=== PATIENT | male | born 1955 | race Caucasian/White ===

== ENCOUNTER 2018-07-21 16:34 | Emergency (ER) | payer BC ==
[~2018-07-21] VITALS: Ht 175.3 cm; Wt 102.1 kg
[2018-07-21] MEDS ORDERED: METO50ER PO (16:48)
[2018-07-21] MEDS ORDERED: HYDCHL25 PO (16:49)
[2018-07-21 17:22] LABS: BASOPHILS ABSOLUTE AUTO 0.05 K/mm3 (0.00-0.23); BASOPHILS PERCENT AUTO 1 % (0-2); EOSINOPHILS ABSOLUTE AUTO 0.17 K/mm3 (0.00-0.68); EOSINOPHILS PERCENT AUTO 2 % (0-6); Hematocrit 44.7 % (37.0-53.0); Hemoglobin 14.5 g/dL (13.5-17.5); IMMATURE GRAN ABSOLUTE AUTO 0.02 K/mm3 (0.00-0.10); IMMATURE GRAN PERCENT AUTO 0 % (0-1); LYMPHOCYTES ABSOLUTE AUTO 2.19 K/mm3 (0.84-5.20); LYMPHOCYTES PERCENT AUTO 27 % (21-46); MONOCYTES ABSOLUTE AUTO 0.39 K/mm3 (0.16-1.47); MONOCYTES PERCENT AUTO 5 % (4-13); Mean Corpuscular HGB 29.1 pg (26.0-34.0); Mean Corpuscular HGB Conc 32.4 g/dL (31.5-36.5); Mean Corpuscular Volume 90 fL (80-100); Mean Platelet Volume 11.9 fL (9.1-12.4); NEUTROPHILS ABSOLUTE AUTO 5.29 K/mm3 (1.96-9.15); NEUTROPHILS PERCENT AUTO 65 % (41-73); Platelet Count 162 K/mm3 (150-400); RDW Coefficient Variation 12.9 % (11.7-14.2); RDW Standard Deviation 42.1 fL (35.1-46.3); Red Blood Cell Count 4.98 M/mm3 (4.30-5.90); White Blood Cell Count 8.11 K/mm3 (4.00-11.30)
[2018-07-21 17:45] LABS: Troponin I <0.015 ng/mL (0.000-0.040)
[2018-07-21 17:46] LABS: Alanine Aminotransfer (ALT/SGP 37 U/L (12-78); Albumin, Blood 4.2 g/dL (3.4-5.0); Albumin/Globulin Ratio 1.1 (0.8-1.8); Alk Phos 62 U/L (50-136); Anion Gap 4 mmol/L (6-16); Aspartate Aminotrans (AST/SGOT 16 U/L (12-37); Bilirubin, Total 0.5 mg/dL (0.1-1.0); Blood Urea Nitrogen 18 mg/dL (8-24); Bun/Creatinine Ratio 20.6 (12.0-20.0); CO2, Blood 30 mmol/L (21-32); Calcium, Blood 8.8 mg/dL (8.5-10.1); Chloride, Blood 104 mmol/L (98-108); Creatinine, Blood 0.87 mg/dL (0.60-1.20); Globulin, Blood 3.7 g/dL (2.2-4.0); Glomerular Filtration Rate >60 (60-); Glucose, Blood 127 mg/dL (70-99); Potassium, Blood 3.9 mmol/L (3.5-5.5); Sodium, Blood 138 mmol/L (136-145); Total Protein, Blood 7.9 g/dL (6.4-8.2)
== END 2018-07-21 21:33 | disposition home or self-care (01) ==
LOC: ER 16:34
PROVIDERS: Physician Assistant
DX: R07.9 Chest pain, unspecified (principal); I10 Essential (primary) hypertension; Z79.899 Other long term (current) drug therapy
CPT/HCPCS: 71046; 80053; 84484; 85025; 93005; 93010; 99284-25

== ENCOUNTER 2018-12-01 11:46 | Day surgery (SDC) | payer BC ==
[~2018-12-01] VITALS: Ht 175.3 cm; Wt 100.6 kg
[~2018-12-01 11:46] MED LIST: Amlodipine Besy10 MG PO; Aspirin EC81 MG PO; HYDCHL25 PO; METO50ER PO; OMEG1CAP30 PO; VITAMIN D-32000 UNIT PO
== END 2018-12-01 15:45 | disposition home or self-care (01) ==
LOC: ORSCSDS 11:46
PROVIDERS: Internal Medicine Gastroenterology
PROC: 0DBN8ZX Excision of Sigmoid Colon, Via Natural or Artificial Opening Endoscopic, Diagnostic (ICD-10-PCS; principal; 2018-12-01 13:00)
PROC: 0DBK8ZX Excision of Ascending Colon, Via Natural or Artificial Opening Endoscopic, Diagnostic (ICD-10-PCS; principal; 2018-12-01 13:00)
PROC: 0DBL8ZX Excision of Transverse Colon, Via Natural or Artificial Opening Endoscopic, Diagnostic (ICD-10-PCS; principal; 2018-12-01 13:00)
PROC: 0DBM8ZX Excision of Descending Colon, Via Natural or Artificial Opening Endoscopic, Diagnostic (ICD-10-PCS; principal; 2018-12-01 13:00)
DX: Z12.11 Encounter for screening for malignant neoplasm of colon (principal); Z80.0 Family history of malignant neoplasm of digestive organs; D12.3 Benign neoplasm of transverse colon; D12.2 Benign neoplasm of ascending colon; D12.4 Benign neoplasm of descending colon; D12.5 Benign neoplasm of sigmoid colon; K57.30 Diverticulosis of large intestine without perforation or abscess without bleeding; K64.8 Other hemorrhoids; I10 Essential (primary) hypertension; E66.9 Obesity, unspecified; Z68.34 Body mass index [BMI] 34.0-34.9, adult; Z79.899 Other long term (current) drug therapy; Z79.82 Long term (current) use of aspirin
CPT/HCPCS: 88305; J2704; J7120

== ENCOUNTER 2020-12-28 10:59 | Emergency (ER) | payer OTHER ==
[2020-12-28] MEDS ORDERED: IMODIUM A-D2 M1 PO (11:28)
[2020-12-28] MEDS ORDERED: KETO10 PO (11:28)
[2020-12-28] MEDS ORDERED: ONDA4ODT MM (11:28)
== END 2020-12-28 14:47 | disposition home or self-care (01) ==
LOC: ER 10:59
DX: U07.1 COVID-19 (principal); I10 Essential (primary) hypertension; Z79.82 Long term (current) use of aspirin; Z79.899 Other long term (current) drug therapy
CPT/HCPCS: 99282-25; A9270; M0243; Q0243

== ENCOUNTER → 2021-06-05 | Outpatient (CLI) | payer OTHER ==
[~2021-06-05] MED LIST changes: +IMODIUM A-D2 M1 PO; +KETO10 PO; +ONDA4ODT MM
[2021-06-06 08:54] LABS: Stool Occult Bld Immuno 1 Negative (NEGATIVE)
== END ==
LOC: LAB SHORT 13:31
PROVIDERS: Family Medicine
DX: Z12.11 Encounter for screening for malignant neoplasm of colon (principal)
CPT/HCPCS: 82274

== ENCOUNTER 2022-05-17 23:07 | Observation (INO) | payer OTHER ==
[~2022-05-17] VITALS: Ht 175.3 cm; Wt 102.1 kg
[~2022-05-17 23:07] MED LIST changes: +AMLO5 PO; -Amlodipine Besy10 MG PO
[2022-05-18 00:57] LABS: BASOPHILS ABSOLUTE AUTO 0.04 K/mm3 (0.00-0.23); BASOPHILS PERCENT AUTO 0 % (0-2); EOSINOPHILS ABSOLUTE AUTO 0.02 K/mm3 (0.00-0.68); EOSINOPHILS PERCENT AUTO 0 % (0-6); Hematocrit 47.5 % (37.0-53.0); Hemoglobin 15.9 g/dL (13.5-17.5); IMMATURE GRAN ABSOLUTE AUTO 0.04 K/mm3 (0.00-0.10); IMMATURE GRAN PERCENT AUTO 0 % (0-1); LYMPHOCYTES ABSOLUTE AUTO 1.29 K/mm3 (0.84-5.20); LYMPHOCYTES PERCENT AUTO 10 % (21-46); MONOCYTES PERCENT AUTO 2 % (4-13); Mean Corpuscular HGB 29.4 pg (26.0-34.0); Mean Corpuscular HGB Conc 33.5 g/dL (31.5-36.5); Mean Corpuscular Volume 88 fL (80-100); Mean Platelet Volume 11.1 fL (9.1-12.4); NEUTROPHILS ABSOLUTE AUTO 11.13 K/mm3 (1.96-9.15); NEUTROPHILS PERCENT AUTO 87 % (41-73); Platelet Count 169 K/mm3 (150-400); RDW Coefficient Variation 12.4 % (11.7-14.2); RDW Standard Deviation 40.2 fL (35.1-46.3); White Blood Cell Count 12.82 K/mm3 (4.00-11.30)
[2022-05-18 01:18] LABS: Alanine Aminotransfer (ALT/SGP 30 U/L (12-78); Albumin, Blood 4.5 g/dL (3.4-5.0); Albumin/Globulin Ratio 1.1 (0.8-1.8); Alk Phos 67 U/L (50-136); Anion Gap 5 mmol/L (6-16); Aspartate Aminotrans (AST/SGOT 11 U/L (12-37); Bilirubin, Total 0.3 mg/dL (0.1-1.0); Blood Urea Nitrogen 20 mg/dL (8-24); Bun/Creatinine Ratio 24.1 (12.0-20.0); CO2, Blood 28 mmol/L (21-32); Calcium, Blood 9.2 mg/dL (8.5-10.1); Chloride, Blood 104 mmol/L (98-108); Creatinine, Blood 0.83 mg/dL (0.60-1.20); Globulin, Blood 4.2 g/dL (2.2-4.0); Glomerular Filtration Rate 97 (60-); Glucose, Blood 179 mg/dL (70-99); Sodium, Blood 137 mmol/L (136-145); Total Protein, Blood 8.7 g/dL (6.4-8.2)
[2022-05-18 02:32] LABS: Bilirubin, Direct <0.1 mg/dL (0.0-0.3); Bilirubin, Indirect Unable to Calculate mg/dL (0.1-0.7)
[2022-05-18] MEDS ORDERED: METF500 PO (04:05)
[2022-05-18] MEDS ORDERED: TAMS.4ER PO (04:07)
[2022-05-18] MEDS ORDERED: Lipitor20 MG PO (04:07)
--- NOTE | 2022-05-18 05:09 | NUR ---
PT NEW ADMIT FROM ER JOSEPH MANCIA. ARRIVED IN NO DISTRESS, IN NO PAIN, NO N/V NOTED. PT A/OX4, INDEP. PASSING FLATTUS AND STOOL W/O DIFFICULTY. ADMIT COMPLETE, SURGICAL WASHDOWN COMPLETE. PT EXPRESSES CONCERN ABOUT LEAVING HIS HOME ALONE, EDUCATED ON SELF CARE AND RESOURCES. PT HAS BEEN NPO SINCE ARRIVING TO THE FLOOR. THE PATIENT IS RESTING, IN NO DISTRESS, CALL LIGHTIN REACH
--- NOTE | 2022-05-18 12:23 | NUR ---
ATTEMPT TO VERIFY HOME MEDICATIONS PT IS UNFAMILIAR WITH HOME MEDICATIONS AND DOSAGES. [facility] AND THEY WERE UNABLE TO PROVIDE A MEDICATION LIST SINCE TODAY IS A HOLIDAY. THIS RN SPOKE WITH THE NURSING SURVEYOR ROD HELPER AT THE [place] WHO WAS UNABLE TO PROVIDE THIS INFORMATION. PT STATES HIS IS UNABLE TO PROVIDE THIS INFORMATION, PT IS ATTEMPTING TO REACH OUT TO ANOTHER FAMILY MEMBER TO OBTAIN THIS INFORMATION.
[2022-05-18] MEDS ORDERED: ATOR10 PO (12:42)
[2022-05-18] MEDS ORDERED: ERGO400 PO (12:43)
[2022-05-18] MEDS ORDERED: GABA100 PO (12:55)
[2022-05-18] MEDS ORDERED: SPIR25 PO (12:57)
--- NOTE | 2022-05-18 13:20 | NUR ---
PT TAKEN TO DAY SURGERY AT THIS TIME. MESSAGE LEFT FOR PT'S ASKING FOR A RETURN CALL SO SHE CAN BE UPDATED.
--- NOTE | 2022-05-18 13:54 | NUR ---
PATIENT INTO DAY SURG FROM 228. R AC IV PATENT. History, Chart, Medications and Allergies reviewed before start of procedure.Patient confirms NPO status and agrees with scheduled surgery. Surgical site prepped with 2% Chlorhexidine cloth wipe.
--- NOTE | 2022-05-18 16:19 | NUR ---
PT ARRIVED BACK TO THE ROOM AT APPROXIMATELY 1605. PT DENIES PAIN. WILL CONTINUE TO MONITOR AND DISCHARGE HOME WHEN PT IS MEETING ALL GOALS.
[2022-05-18] MEDS ORDERED: OXYC5 PO (18:23)
--- NOTE | 2022-05-18 19:33 | NUR ---
SHIFT SUMMARY PT IS POD#0 FROM [facility] WITH DR. OLIVEROS. PAIN MANAGED WITH TYLENOL. PT HAS BEEN ABLE TO TOLERATE PO, PASS FLATUS, VOID AND AMBULATE. PT PLANS TO GO HOME THIS EVENING. PT PROVIDED WITH WRITTEN AND VERBAL DISCHARGE INSTRUCTIONS, HE REPORTED UNDERSTANDING. PRESCRIPTION GIVEN TO PT FOR PAIN MEDICATION, PT EDUCATED THAT HE MAY BE UNABLE TO FILL AT THIS TIME OF THE EVENING, PT VERBALIZED UNDERSTANDING AND VERBALIZED THAT HE WOULD STILL LIKE TO DISCHARGE HOME. REPORT GIVEN TO ELIU RN.
--- NOTE | 2022-05-18 20:31 | NUR ---
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
== END 2022-05-18 20:24 | disposition home or self-care (01) ==
LOC: ER 23:07 → SURS 05-18 03:34
PROVIDERS: Physician Assistant; Surgery; ADMIT Surgery
PROC: 0FT44ZZ Resection of Gallbladder, Percutaneous Endoscopic Approach (ICD-10-PCS; principal; 2022-05-18 14:00)
DX: K80.12 Calculus of gallbladder with acute and chronic cholecystitis without obstruction (principal); K82.A1 Gangrene of gallbladder in cholecystitis; I10 Essential (primary) hypertension; E78.5 Hyperlipidemia, unspecified; N40.0 Benign prostatic hyperplasia without lower urinary tract symptoms
CPT/HCPCS: 74177; 76705; 76882; 80053; 82248; 82947; 83690; 85025; 93005; 93010; A9270; G0378; J0694; J1170; J1885; J2250; J2704; J2795; J3010; J7030; J7120; Q9967